=== PATIENT | female | born 1950 | race Hispanic/Latino ===

== ENCOUNTER 2017-10-14 10:01 | Outpatient (CLI) | payer BC ==
--- NOTE | 2017-10-15 10:36 | Mammography Report ---
BILATERAL DIGITAL SCREENING MAMMOGRAM with CAD : 10/14/17 10:01:00 CLINICAL: Routine screening. COMPARISON:09/26/16 FINDINGS: The breasts are heterogeneously dense, which may obscure small masses.Scattered bilateral benign calcifications. No mass, architectural distortion or suspicious calcifications. IMPRESSION: No mammographic evidence of malignancy. BI-RADS CATEGORY: 2 -- Benign RECOMMENDATION: Routine mammographic screening in one year. COMMENT: Patient follow-up letters are generated by our [employer] application.
== END 2017-10-14 10:02 | disposition home or self-care (01) ==
LOC: SPVWC 10:01
PROVIDERS: ATTEND Obstetrics & Gynecology
DX: Z12.31 Encounter for screening mammogram for malignant neoplasm of breast (principal)
CPT/HCPCS: 77067; G0202

== ENCOUNTER 2018-10-29 09:54 | Outpatient (CLI) | payer MEDICARE ==
--- NOTE | 2018-10-29 13:43 | Mammography Report ---
BILATERAL DIGITAL SCREENING MAMMOGRAM with CAD : 10/29/18 09:54:00 CLINICAL: Routine screening. COMPARISON:10/14/17 FINDINGS: The breasts are heterogeneously dense, which may obscure small masses.Scattered bilateral benign calcifications. No mass, architectural distortion or suspicious calcifications. IMPRESSION: No mammographic evidence of malignancy. BI-RADS CATEGORY: 2 -- Benign RECOMMENDATION: Routine mammographic screening in one year. COMMENT: Patient follow-up letters are generated by our [employer] application.
== END 2018-10-29 09:55 | disposition home or self-care (01) ==
LOC: SPVWC 09:54
PROVIDERS: ATTEND Obstetrics & Gynecology
DX: Z12.31 Encounter for screening mammogram for malignant neoplasm of breast (principal)
CPT/HCPCS: 77067

== ENCOUNTER 2019-12-12 10:50 | Outpatient (CLI) | payer MEDICARE ==
--- NOTE | 2019-12-12 16:02 | Mammography Report ---
DIGITAL SCREENING MAMMOGRAM WITH CAD, 12/12/2019 INDICATION: Routine screening mammography. TECHNIQUE: Digital bilateral 2D mammography was obtained in the craniocaudal and mediolateral obliq ue projections. This examination was interpreted with the benefit of Computer-Aided Detection analysi s. COMPARISON: 10/29/2018 and mammograms going back to 04/19/2013 FINDINGS: Breast Density: The breasts are heterogeneously dense, which may obscure small masses. Bilateral asym metries on the cc views require additional imaging. No architectural distortion or suspicious calcifi cations. IMPRESSION: Bilateral asymmetries requiring additional imaging. Recommend recall for bilateral ML and spot magnification CC views and bilateral breast ultrasound if needed. Follow up recommendation: Routine yearly Category 0: Incomplete. Needs additional imaging evaluation and/or prior mammograms for comparison. A "normal" or negative report should not discourage follow up or biopsy of a clinically significant f inding. A written summary of these findings will be mailed to the patient. The patient will be entered into a mammography reporting system which will generate a reminder letter for the patient's next appointmen t at the appropriate interval. The [employer] recommends yearly mammograms starting at age 40 and continuing as l pierce as a woman is in good health. Breast MRI is recommended for women with an approximate 20-25% or greater lifetime risk of breast cancer, including women with a strong family history of breast or ova priscilla cancer or who have been treated for Hodgkin's disease. Signer Name: Georgi Gregorio MD Signed: 12/12/2019 3:58 PM Workstation Name: [id number]
== END 2019-12-12 10:51 | disposition home or self-care (01) ==
LOC: SPVWC 10:50
PROVIDERS: ATTEND Obstetrics & Gynecology
DX: Z12.31 Encounter for screening mammogram for malignant neoplasm of breast (principal)
CPT/HCPCS: 77067

== ENCOUNTER 2019-12-28 13:07 | Outpatient (CLI) | payer MEDICARE ==
--- NOTE | 2019-12-29 09:28 | Ultrasound Report ---
BILATERAL DIGITAL DIAGNOSTIC MAMMOGRAM WITH CAD 12/28/2019 BILATERAL COMPLETE BREAST ULTRASOUND INDICATION: Recall for bilateral asymmetries. F/U abnormal mammogram TECHNIQUE: Digital bilateral mammographic imaging was performed. Magnification views were obtained. This examination was interpreted with the benefit of Computer-Aided Detection (CAD) analysis. COMPARISON: 12/12/2019 FINDINGS: Breast Density: The breasts are heterogeneously dense, which may obscure small masses. MAMMOGRAPHIC FINDINGS: Partial effacement of right outer asymmetries on a spot magnification CC view and complete effacement of a left outer asymmetry on a spot magnification CC view. ULTRASOUND FINDINGS: Complete sonographic evaluation of all 4 quadrants and retroareolar region was p erformed. Bilateral breast ultrasound demonstrated a few bilateral scattered subcentimeter benign c ysts. Some of the cysts appear to have calcifications within them. No solid mass or suspicious shadow ing. IMPRESSION: Probably benign right outer mammographic asymmetries, bilateral scattered benign cysts. R ecommend 6 month follow-up right diagnostic mammogram and ultrasound if needed. Recommend routine scr eening of the left breast. Follow up recommendation: Short term follow up in 6 months. BI-RADS Category 6: Known Biopsy-Proven Malignancy. A "normal" or negative report should not discourage follow up or biopsy of a clinically significant f inding. A written summary of these findings will be mailed to the patient. The patient will be entered into a mammography reporting system which will generate a reminder letter for the patient's next appointmen t at the appropriate interval. According to the [employer], yearly mammograms are recommended starting at age 40 and continuing as long as a woman is in good health. Breast MRI is recommended for women with an deven roximately 20-25% or greater lifetime risk of breast cancer, including women with a strong family his tory of breast or ovarian cancer and women who have been treated for Hodgkin's disease. Signer Name: Georgi Gregoroi MD Signed: 12/29/2019 9:24 AM Workstation Name: [id number]
== END 2019-12-28 13:08 | disposition home or self-care (01) ==
LOC: SPVWC 13:07
PROVIDERS: ATTEND Obstetrics & Gynecology
DX: N60.02 Solitary cyst of left breast (principal); N60.01 Solitary cyst of right breast
CPT/HCPCS: 77066

== ENCOUNTER 2020-07-04 10:42 | Outpatient (CLI) | payer MEDICARE ==
--- NOTE | 2020-07-04 18:13 | Ultrasound Report ---
RIGHT DIGITAL DIAGNOSTIC MAMMOGRAM WITH CAD 07/04/2020 RIGHT LIMITED BREAST ULTRASOUND INDICATION: Short-term follow-up for abnormal right mammogram TECHNIQUE: Digital right mammographic imaging was performed. Limited ultrasound was performed. This examination was interpreted with the benefit of Computer-Aided Detection (CAD) analysis. COMPARISON: Prior mammograms, 12/28/2019, 12/12/2019, 10/29/2018, 10/14/2017 FINDINGS: Breast Density: The breasts are heterogeneously dense, which may obscure small masses. MAMMOGRAPHIC FINDINGS: There is no evidence of dominant mass, suspicious calcifications or architectu ral distortion in the right breast. Previously noted focal asymmetric densities are stable in appeara nce and appear unchanged, in my opinion, compared with 10/14/2017. ULTRASOUND FINDINGS: Targeted ultrasound evaluation was performed of the area of interest. Very sma ll subcentimeter hypoechoic nodules are seen scattered throughout the upper outer quadrant. The appea quang is most consistent with fibrocystic change. The appearance is essentially unchanged with the mo st recent ultrasound of 12/28/2019. There are no suspicious findings. IMPRESSION: Benign findings. No evidence of malignancy or significant interval change. Follow up recommendation: Routine yearly-resumption of annual screening mammography. BI-RADS Category 2: Benign. A "normal" or negative report should not discourage follow up or biopsy of a clinically significant f inding. A written summary of these findings will be mailed to the patient. The patient will be entered into a mammography reporting system which will generate a reminder letter for the patient's next appointmen t at the appropriate interval. According to the [employer], yearly mammograms are recommended starting at age 40 and continuing as long as a woman is in good health. Breast MRI is recommended for women with an deven roximately 20-25% or greater lifetime risk of breast cancer, including women with a strong family his tory of breast or ovarian cancer and women who have been treated for Hodgkin's disease. Signer Name: Liset Anders MD Signed: 07/04/2020 6:08 PM Workstation Name: [id number]
== END 2020-07-04 10:43 | disposition home or self-care (01) ==
LOC: SPVWC 10:42
PROVIDERS: ATTEND Obstetrics & Gynecology
DX: N63.11 Unspecified lump in the right breast, upper outer quadrant (principal); N60.11 Diffuse cystic mastopathy of right breast

== ENCOUNTER 2020-12-18 10:50 | Outpatient (CLI) | payer MEDICARE ==
--- NOTE | 2020-12-19 07:15 | Mammography Report ---
DIGITAL SCREENING MAMMOGRAM WITH CAD, 12/18/2020 CLINICAL INFORMATION / INDICATION: Routine screening mammography. SCREENING MAMMO TECHNIQUE: Digital bilateral 2D mammography was obtained in the craniocaudal and mediolateral obliqu e projections. This examination was interpreted with the benefit of Computer-Aided Detection analysis . COMPARISON: 12/12/2019 FINDINGS: Breast Density: The breasts are heterogeneously dense, which may obscure small masses. No dominant mass, suspicious calcifications, or architectural distortion in either breast. Largely unchanged nodular densities in the breasts, likely fibroglandular or fibrocystic change. Several scattered calcifications are also again noted. IMPRESSION: No mammographic evidence of malignancy. Follow up recommendation: Routine yearly BI-RADS Category 2: Benign. A "normal" or negative report should not discourage follow up or biopsy of a clinically significant f inding. A written summary of these findings will be mailed to the patient. The patient will be entered into a mammography reporting system which will generate a reminder letter for the patient's next appointmen t at the appropriate interval. The [employer] recommends yearly mammograms starting at age 40 and continuing as l pierce as a woman is in good health. Breast MRI is recommended for women with an approximate 20-25% or greater lifetime risk of breast cancer, including women with a strong family history of breast or ova priscilla cancer or who have been treated for Hodgkin's disease. Signer Name: Jeremy Osorio MD Signed: 12/19/2020 7:10 AM Workstation Name: [id number]
== END 2020-12-18 10:51 | disposition home or self-care (01) ==
LOC: SPVWC 10:50
PROVIDERS: ATTEND Obstetrics & Gynecology
DX: Z12.31 Encounter for screening mammogram for malignant neoplasm of breast (principal)
CPT/HCPCS: 77067

== ENCOUNTER 2022-02-18 10:27 | Outpatient (CLI) | payer MEDICARE ==
--- NOTE | 2022-02-24 08:15 | Mammography Report ---
DIGITAL SCREENING MAMMOGRAM WITH CAD, 02/18/2022 CLINICAL INFORMATION / INDICATION: Routine screening mammography. TECHNIQUE: Digital bilateral 2D mammography was obtained in the craniocaudal and mediolateral obliqu e projections. This examination was interpreted with the benefit of Computer-Aided Detection analysis . COMPARISON: 12/18/2020, 07/04/2020, 12/28/2019, 12/12/2019 FINDINGS: Breast Density: The breasts are heterogeneously dense, which may obscure small masses. No dominant mass, suspicious calcifications, or architectural distortion in either breast. IMPRESSION: No mammographic evidence of malignancy. Follow up recommendation: Routine yearly BI-RADS Category 1: NEGATIVE A "normal" or negative report should not discourage follow up or biopsy of a clinically significant f inding. A written summary of these findings will be mailed to the patient. The patient will be entered into a mammography reporting system which will generate a reminder letter for the patient's next appointmen t at the appropriate interval. The [employer] recommends yearly mammograms starting at age 40 and continuing as l pierce as a woman is in good health. Breast MRI is recommended for women with an approximate 20-25% or greater lifetime risk of breast cancer, including women with a strong family history of breast or ova priscilla cancer or who have been treated for Hodgkin's disease. Signer Name: Ivette Kam MD Signed: 02/24/2022 8:10 AM Workstation Name: [email or web address]
== END 2022-02-18 10:28 | disposition home or self-care (01) ==
LOC: SPVWC 10:27
PROVIDERS: ATTEND Obstetrics & Gynecology
DX: Z12.31 Encounter for screening mammogram for malignant neoplasm of breast (principal); N64.89 Other specified disorders of breast
CPT/HCPCS: 77067